=== PATIENT | male | born 1995 | race Caucasian/White ===

== ENCOUNTER 2022-11-23 00:12 | Emergency (ER) | payer BC ==
[2022-11-23] MEDS ORDERED: Ibuprofen 200 MG TAB ONE (01:51)
[2022-11-23] MEDS ORDERED: Acetaminophen 500 MG TAB ONE (01:51)
[2022-11-23 03:39] LABS: SARS-CoV-2 NAA Rapid Test DETECTED (NotDetected)
== END 2022-11-23 04:15 | disposition home or self-care (01) ==
LOC: ERS 00:12
DX: U07.1 COVID-19 (principal)
CPT/HCPCS: 99283